=== PATIENT | male | born 1960 | race Caucasian/White ===

== ENCOUNTER 2025-01-15 20:24 | Emergency (ER) | payer MEDICARE ==
[~2025-01-15] VITALS: Ht 167.6 cm; Wt 56.7 kg
[~2025-01-15 20:24] MED LIST: ASCO500 PO; CELE100; CEPH500 PO; CYAN1000 PO; CYCL10 PO; GABA100 PO; HYDACE10B PO; HYDACE5 PO; IBUP400 PO; IBUP600 PO; IBUP800 PO; IBUPROFEN; MULVITMINF PO; NAPR500 PO; OXYACE5T PO; OXYC10ER; Percocet 5-3251 EACH PO; RXHYDACE PO; RXOXYACE PO; SULTRIDS PO; TURMERIC500 MG PO
[2025-01-15] MEDS ORDERED: Ondansetron HCl 2 MG / ML 2ML Vial IV ONE (20:55)
[2025-01-15] MEDS ORDERED: HYDROmorphone HCl/Pf 1MG SYR IV ONE (20:55)
[2025-01-15] MEDS ORDERED: Propofol 10mg/ml 20 ml Vial (Procedural) IV SCH (21:40)
[2025-01-15] MEDS ORDERED: NS 1,000 ML IV ONE (22:15)
[2025-01-15] MEDS ORDERED: NS 1,000 ML IV SCH (22:30)
[2025-01-15] MEDS ORDERED: RX Prepack 6 Tabs Oxycodone 5mg UD ONE (23:20)
[2025-01-15 23:30] VITALS: BP 161/65
== END 2025-01-15 23:35 | disposition home or self-care (01) ==
LOC: ER 20:24
DX: M24.411 Recurrent dislocation, right shoulder (principal); F17.210 Nicotine dependence, cigarettes, uncomplicated; Z88.5 Allergy status to narcotic agent; Z79.899 Other long term (current) drug therapy
CPT/HCPCS: 23650; 71045; 73030; 96374-59; 96375-59; 99152; 99283-25; A9270; J1171; J2405; J2704; J7030